=== PATIENT | male | born 1985 | race Caucasian/White ===

== ENCOUNTER → 2017-05-09 | Outpatient (CLI) | payer OTHER ==
[~2017-05-09] MED LIST: BUPivacaine Inj 0.25% PF - 10ml vial ONE
--- NOTE | 2017-05-09 18:12 | DI ---
RIGHT HIP JOINT INJECTION FOR MRI SCAN, 05/09/2017 1:13 PM: Clinical History: Labral tear of the right hip joint. Previous Exam: None at this facility. A "time out" session was performed to verify the patient's name and date of prior to obtaining informed signed consent prior for this procedure. The patient was informed of benefits and risks, to include but not be limited to: allergies to medications (skin preparation agent, local anesthetic, an d contrast agent); joint infection; and joint pain following the procedure. The area was prepped with ChloraPrep solution. 1% lidocaine without epinephrine was used for intrader mal and subcutaneous local anesthesia. A 22 gauge spinal needle was introduced under fluoroscopy into the joint space with a single pass. No joint fluid could be aspirated. 10 mL of a mixture containing 2 mL of Isovue 300, 3 mL 1% lidocaine without epinephrine, 3 mL of 0.25% bupivacaine, and 2 ml of no rmal saline was injected into the joint. Spot films of the area were obtained. The patient tolerated the procedure well and was transferred to the MRI scan suite for the MRI arthrogram. The patient was advised to watch for signs of an infection (including but not limited to: redness, swelling, or fever ). The patient was instructed to either contact the x-ray department directly or to report to the [facility] rgency Room immediately if problems arose. Spot films of the right hip with intra-articular contrast are unremarkable. Reading: Successful uncomplicated right hip injection with normal saline and bupivacaine and lidocaine.
--- NOTE | 2017-05-10 09:20 | DI ---
MRI RIGHT HIP SCAN WITH INTRA-ARTICULAR CONTRAST, 05/09/2017 1:13 PM: Clinical History: Labral tear of the right hip joint. Previous Exam: None at this facility. Technique: Axial fat saturated T2 weighted and oblique axial PD; coronal and sagittal PD and fat satu rated PD; anterior and posterior oblique coronal fat saturated PD. Normal saline mixed with 3 mL of 1 % Lidocaine without epinephrine and 3 mL of 0.25% Bupivacaine was used for intra-articular contrast. There is no soft tissue or bony abnormality. There is acetabular over coverage laterally that was not appreciated on the spot films of the hip during the joint injection. The femoral head is a spherical and alpha angle measures 58 degrees. The acetabulum does not have a shallow slope typical of develop mental dysplasia of the hip, and there is no femoral "crease". However the labrum does appear hypertr ophied. The ligamentum teres has a normal appearance without hypertrophy. There is chondral labral se paration from the mid point of the anterosuperior quadrant extending posteriorly to the midpoint of t he anteroposterior quadrant as well as a longitudinal tear in the labrum in the anterosuperior quadra nt. The chondral surfaces of the femoral head and acetabulum are intact. There is no ligamentous abno rmality. No muscle atrophy is seen. Readin. There is a chondral labral tear with a longitudinal tear in the anterosuperior quadrant. The mk dral labral tear extends posteriorly into the posterior superior quadrant. The labrum does appear hyp ertrophied although there are no other stigmata of developmental dysplasia of the hip. Acetabular ove r coverage is present. 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 No subchondral bony changes or cartilaginous changes are noted.
== END ==
LOC: RAD 13:09
PROVIDERS: ATTEND Orthopaedic Surgery
DX: S73.191A Other sprain of right hip, initial encounter (principal)
CPT/HCPCS: 27093; 73722; S0020